=== PATIENT | male | born 1950 | race Two or more races ===

== ENCOUNTER 2019-01-24 12:23 | Inpatient (IN) | payer OTHER ==
[~2019-01-24] VITALS: Ht 190.5 cm; Wt 107.7 kg
--- NOTE | 2019-01-24 12:32 | NUR ---
EKG DONE.HR 22-167. DR MCDUFFIE, ERP, AWARE AND AT BEDSIDE ON PT'S ARRIVAL.
[2019-01-24 12:54] LABS: BASOPHIL % 0.4 % (0-2); PLATELET COUNT 173 x10^3mcL (130-400)
[2019-01-24 12:55] LABS: RED CELL DISTRIBUTION WIDTH 21.4 % (11.5-14.5)
--- NOTE | 2019-01-24 12:57 | NUR ---
X-RAY BEING DONE AT BEDSIDE.
[2019-01-24 13:00] LABS: CALCIUM 8.3 mg/dL (8.5-10.1); CARBON DIOXIDE 23.4 mmol/L (21-32); CREATININE SERUM 1.9 mg/dL (0.7-1.3); POTASSIUM SERUM 4.2 mmol/L (3.5-5.1)
[2019-01-24 13:05] LABS: ALBUMIN 3.1 g/dL (3.4-5.0); BILIRUBIN TOTAL 1.53 mg/dL (0.20-1.00); TOTAL PROTEIN, SERUM 6.5 g/dL (6.4-8.2)
--- NOTE | 2019-01-24 13:08 | NUR ---
US TEST BEING DONE AT BEDSIDE.
[2019-01-24 14:17] LABS: T3 TOTAL 0.84 ng/mL
[2019-01-24 14:22] LABS: PHOSPHOROUS 3.7 mg/dL (2.5-4.9)
--- NOTE | 2019-01-24 14:30 | NUR ---
PT ADMITTED (TELE, ROOM#202A) - REPORT CALLED TO FLOOR HEALTHCARE ACCOUNT MANAGER. OPPORTUNITY GIVEN TO ASK QUESTIONS. PT BEING TRANSPORTED TO FLOOR BY RN AND EMT. PT AAOX4, VSS, BREATHING EASY AND UNLABORED, FOLLOWS SIMPLE COMMANDS.
[2019-01-24 14:31] LABS: FREE T4 1.27 ng/dL (0.76-1.46); FREE THYROXINE INDEX 2.7 ug/dL (1.4-4.5); T4(THYROXINE) 6.8 ug/dL (4.7-13.3)
[2019-01-24 14:34] LABS: CHOLESTEROL/HDL RATIO 3.2
[2019-01-24 15:22] VITALS: BP 111/78
[2019-01-24 15:43] VITALS: BP 105/83
--- NOTE | 2019-01-24 16:14 | NUR ---
RECEIVED PATIENT AA/O X4, DENIES CHEST PAIN OR PALPITATION. NONPRODUCTIVE COUGH NOTED, BILAT. LOBES RHONCHI/CRACKLES; RT UPPER LOBE EXP WHEEZES NOTED. O2SAT 97% UNLABORED BREATHING NOTED, PLACE TELE #28 AFIB HR 132 NOTED. ORIENTED TO CALL LIGHT. POC DISCUSS. OFFERED SANDWICH AND SODA AND OKAY BY DR. EARL. BLE DISCOLORED/SWELLING/RED NOTED. CONT TO MONITOR.
[2019-01-24 17:01] VITALS: BP 110/81
--- NOTE | 2019-01-24 17:20 | NUR ---
PATIENT SAT UP IN BED WATCHING MOVIE ON PHONE. NONPRODUCTIVE COUGH. ROCEPHION IVPB INFUSING AT 100ML/HR TO LAC PATENT, LASIX 20MG IVP AND METOPROLOL 50MG PO ADMINISTERED, BP 110/81, HR 139, CONT TO MONITOR.
--- NOTE | 2019-01-24 18:13 | NUR ---
PATIENT SITTING IN BED WATCHING MOVIE, NO COMPLAIN. ZITHROMAX IVPB INFUSING AT 250ML/HR TO LAC IV PATENT, GAVE SPECIMEN CUPS AND INFORM PATIENT NEED URINE AND SPUTUM SAMPLES, CALL NURSE WHEN AVAILABLE. NEEDS MET. CALL LIGHT WITHIN REACH.
[2019-01-24 21:03] VITALS: BP 104/60
[2019-01-24 23:34] LABS: microscopic required? YES; urine erythrocyte NEGATIVE (NEGATIVE)
[2019-01-24 23:45] LABS: AMPHETAMINE QUAL UR NONE DETECTED (See below)
--- NOTE | 2019-01-25 00:54 | NUR ---
HEAD TO TOE ASSESSMENT COMPLETED THIS SHIFT, PT DENIES ANY PAIN OR DISCOMFORT, WAS ABLE TO SEND PATIENT'S UA WELL HIS SPUTUM CULTURE DOWN TO LAB, PT HAD O2 OFF AT ASSESSMENT BUT WHEN THIS NURSE MADE ROUNDS AGAIN PT DID PUT O2 ON WHICH HE HAS ON AT 02@2L PER NC. PT HAS NO SOB WHEN AMBULATING ROOM, ENCOURAGED PT TO CALL FOR ASSISTANCE WHEN AMBULATING WHEN PT FEELS DIZZY. WILL CONTINUE TO MONITOR FOR SAFETY.
[2019-01-25 05:32] VITALS: BP 98/75
--- NOTE | 2019-01-25 07:40 | NUR ---
RECEIVED PATIENT RESTING IN BED, NO ACUTE CHANGES NOTED. PATIENT DENIES HEADACHE AND DIZZINESS. TELE MONITOR IN PLACE. PATIENT DENIES CHEST PAIN. EDEMA NOTED TO BLE, EDUCATED PATIENT ON MAINTAINING BLE ELEVATED. RHONCHI/CRACKLES NOTED TO REBECCA LOWER BASES, PATIENT ON 2L NC. PATIENT IS AMBULATORY, WITH NO ASSIST. IV TO LAC CDI&PATENT, NO S/S OF INFILTRATION. CALL LIGHT WITHIN REACH, BED IN LOW POSITION. WILL CONTINUE TO MONTIOR FOR CHANGES.
[2019-01-25 07:47] LABS: CALCIUM 8.4 mg/dL (8.5-10.1); CARBON DIOXIDE 22.5 mmol/L (21-32); POTASSIUM SERUM 4.7 mmol/L (3.5-5.1)
[2019-01-25 08:36] LABS: PLATELET COUNT 218 x10^3mcL (130-400); RED CELL DISTRIBUTION WIDTH 21.5 % (11.5-14.5)
[2019-01-25 08:37] LABS: BASOPHIL % 0.3 % (0-2)
[2019-01-25 08:54] LABS: burr cell (echinocyte) 1+; rbc morphology (normal/abnorm) ABNORMAL (NORMAL); tear drop cell (dacryocyte) 1+
[2019-01-25 09:05] VITALS: BP 119/75
[2019-01-25 13:16] VITALS: BP 111/72
--- NOTE | 2019-01-25 15:50 | NUR ---
SPEECH THERAPIST AT BEDSIDE, FOR SWALLOW EVALUATION.
--- NOTE | 2019-01-25 16:12 | NUR ---
Bedside swallow evaluation completed. Pt is alert and verbally responsive. Pt refused trials of thicken liquids. PO trials of regualr diet, Puree and Thin liquids provided. WFL bolus management skills across all diet textures. No s/s of aspiration noted. No cough/ no throat clear noted. Pre and post swallow vocal quality is clear. Swallow evaluation only. Continue regualr texture and thin liquids. No further ST follow up indicated. Informed Jessika, Charge nurse.
[2019-01-25 17:16] VITALS: BP 107/82
--- NOTE | 2019-01-25 17:24 | NUR ---
ABXS GIVEN, NO ACUTE DISTRESS NOTED. PATIENT DENIES PAIN. DENIES CHEST PAIN, HEADACHE, AND DIZZINESS. PATIENT AWARE TO NOTIFY NURSE FOR ANY ASSISTANCE. TELE MONITOR IN PLACE. INSTRUCTED PATIENT TO CONTINUE MAINTAINING BLE ELEVATED, AND CONTINUE USING IS X10 AN HOUR. IV TO LAC CDI&PANT, NO S/S OF INFILTRATION. CALL LIGHT WITH REACH, BED IN LOW POSITION. WILL CONTINUE TO MONITOR.
--- NOTE | 2019-01-25 18:28 | NUR ---
P.T. NOTES P.T. EVAL COMPLETED; PATIENT MAY AMBULATE W/ NURSE AD JARRELL; LD=[id number]
--- NOTE | 2019-01-25 19:25 | NUR ---
RECEIVED REPORT FROM DAY SHIFT RN. PT SITTING IN THE SIDE OF THE BED. AA&O X4. NO C/O SOB OR CHEST PAIN. ON O2 2L VIA NC. NO DISTRESS NOTED. IV SALINE LOCKED TO RAC AND LAC. SAFETY MEASURES IN PLACE. INSTRUCTED PT TO USE THE CALL LIGHT IF ASSISTANCE IS NEEDED. CALL LIGHT WITHIN REACH.
[2019-01-25 20:25] VITALS: BP 125/68
[2019-01-26 05:00] VITALS: BP 105/67
[2019-01-26 06:07] LABS: PLATELET COUNT 151 x10^3mcL (130-400)
[2019-01-26 06:29] LABS: BASOPHIL % 0 % (0-2); RED CELL DISTRIBUTION WIDTH 21.4 % (11.5-14.5)
[2019-01-26 06:41] LABS: CALCIUM 8.3 mg/dL (8.5-10.1); CARBON DIOXIDE 21.7 mmol/L (21-32); CREATININE SERUM 2.2 mg/dL (0.7-1.3); POTASSIUM SERUM 4.6 mmol/L (3.5-5.1)
--- NOTE | 2019-01-26 07:00 | NUR ---
PT RESTED IN INTERVALS. NO SOB ON O2 2L VIA NC. NO C/O PAIN. SAFETY MEASURES MAINTAINED. ALL NEEDS ATTENDED TO. CALL LIGHT WITHIN REACH. WILL ENDORSE CONTINUITY OF CARE TO DAY SHIFT RN.
--- NOTE | 2019-01-26 07:00 | NUR ---
RECIEVED PT RESTING IN BED WITH NO C/O PAIN OR DISTRESS. TELE#28 CONNECTED TO PT, DENIES ANY CP OR PRESSURE. BLE AND REDNESS, JOZEF PHAN AWARE. PT ON 2 LPM O2 NC. NON-PRODUCTIVE COUGH WITH NO C/O SOB. LAC IV CDI AND PATENT AND LAC REMOVED WITH CATHETER INTACT. SAFETY PRECAUTIONS IN PLACE, CALL LIGHT WITHIN REACH, WILL MONITOR.
[2019-01-26 09:14] VITALS: BP 99/72
--- NOTE | 2019-01-26 10:10 | NUR ---
METROPROLOL SKYE NON-SCHEDULED FOR HR OF 144, CHANNEL MARKETING PROGRAM MANAGER AWARE. WILL MONITOR.
[2019-01-26 12:50] VITALS: BP 110/65
--- NOTE | 2019-01-26 14:27 | NUR ---
RAC REMOVED WITH CATHETER INTACT AND NEW IV STARTED IN RFA 22GUAGE. BOTHES SITES FREE FROM INFLAMMATION OR REDNESS.
[2019-01-26 15:25] VITALS: BP 146/77
--- NOTE | 2019-01-26 16:45 | NUR ---
REPORT ENDORSED TO MAXWELL DIANE PER CHARGE NURSE. PT STABLE WITH NO DISTRESS NOTED. SAFETY PRECAUTIONS IN PLACE, AND CALL LIGHT WITHIN REACH.
--- NOTE | 2019-01-26 16:55 | NUR ---
RECEIVED PT. FROM KSENIA VICENTE RN. PT. A/A/O X4. H.R. IN THE 130's - 140's A.FIB. WITH RVR AT THIS TIME. PT. DENIES ANY PAIN OR CHEST DISCOMFORT. NURSE PRACTITIONER JOZEF RODRIGUEZ WAS MADE AWARE OF PT.'S H.R. NO FURTHER ORDER RECEIVED AT THIS TIME. IV SITE NOTED TO R FA. WILL CONTINUE TO MONITOR.
[2019-01-26 17:34] VITALS: BP 108/80
--- NOTE | 2019-01-26 18:09 | NUR ---
REMAINS IN STABLE CONDITION AT THIS TIME. WILL CONTINUE TO MONITOR.
--- NOTE | 2019-01-26 19:30 | NUR ---
RECEIVED REPORT FROM DAY SHIFT RN. PT SITTING ON THE SIDE OF THE BED. AA&O X4. NO SOB NOTED ON ROOM AIR. NO C/O PAIN. IV TO RFA, SALINE LOCKED. SAFETY MEASURES IN PLACE. BED IN LOWEST POSITION. CALL LIGHT WITHN REACH.
[2019-01-26 21:41] VITALS: BP 104/77
[2019-01-27 06:15] VITALS: BP 134/74
[2019-01-27 06:59] LABS: CALCIUM 8.7 mg/dL (8.5-10.1); CARBON DIOXIDE 24.4 mmol/L (21-32); CREATININE SERUM 2.2 mg/dL (0.7-1.3); POTASSIUM SERUM 5.2 mmol/L (3.5-5.1)
[2019-01-27 07:20] LABS: PLATELET COUNT 171 x10^3mcL (130-400)
--- NOTE | 2019-01-27 07:20 | NUR ---
RECEIVED PT IN BED. ASSESSED AND DOCUMENTED. DENIES PAIN THIS TIME. STABLE. NO SOB NOTED THIS TIME. SAFTEY PRECAUTIONS ARE IN PLACE. WILL MONITOR.
--- NOTE | 2019-01-27 07:24 | NUR ---
PT RESTED IN INTERVALS. NO C/O SOB ON ROOM AIR. NO C/O CHEST PAIN OR PRESSURE. NO ACUTE DISTRESS NOTED. SAFETY MEASURES MAINTAINED. ALL NEEDS ATTENDED TO. CALL LIGHT WITHIN REACH. ENDORSED CONTINUITY OF CARE TO DAY SHIFT RN.
[2019-01-27 07:54] LABS: BASOPHIL % 0 % (0-2); RED CELL DISTRIBUTION WIDTH 21.1 % (11.5-14.5)
--- NOTE | 2019-01-27 09:00 | NUR ---
INFORMED CIRCUS HAND JOZEF ABOUT K=5.2, BUN/CREAT=42/2.2. SHE SAID SHE WILL ADJUST THE DOSE OF VANCOMYCIN, NO NEW ORDER THIS TIME. PT IS STABLE.
[2019-01-27 09:17] VITALS: BP 109/55
--- NOTE | 2019-01-27 10:15 | NUR ---
INFORMED PHARMACY ABOUT VANCO TROUGH IS 12, BUT VANCO WAS DISCONTINUED BY TURF FARM WORKER.
[2019-01-27 12:52] VITALS: BP 107/83
--- NOTE | 2019-01-27 13:00 | NUR ---
PT SITTING UP IN THE CHAIR AND EATING HIS LUNCH, STABLE, DENIES ANY PAIN. NO SOB NOTED.
--- NOTE | 2019-01-27 16:00 | NUR ---
PT TOOK SHOWER, STABLE, PUT TELE BACK AFTER HE CAME BACK FROM SHOWER, GETTING BREATHING TX NOW. NO SOB NOTED. HR IS 120'S. WILL MONITOR. METOPROLOL PO 50MG WAS RECEIVED AFTER NOON, DENIES ANY CHEST PAIN.
--- NOTE | 2019-01-27 17:00 | NUR ---
PT IS WALKING, HR IS IN 130'S. ADVISED PT TO LIE DOWN IN THE BED AND REST BUT PT REFUSED, HE SAID HE WANT TO WALK. DENIES CHEST PAIN OR PALPITATION, RHYTHM STILL AFIB WITH RVR, INFORMED PT ABOUT HIS CONDITION BUT PT STILL WANT WALKING AROUND. CLOSELY MONITERING THE PT.
[2019-01-27 17:54] VITALS: BP 116/74
--- NOTE | 2019-01-27 19:15 | NUR ---
PT SITTING UP IN THE BED. STABLE. DENIES ANY PAIN. GAVE REPORT TO ADVERTISING LAYOUT WORKER NURSE.
--- NOTE | 2019-01-27 19:35 | NUR ---
RECEIVED PT. PT SITTING UP IN BED. AA&O X4. NO SOB ON ROOM AIR. BREATHING EVEN AND UNLABORED. NO C/O CHEST PAIN. NO DISTRESS NOTED. IV TO RFA, INTACT. SAFETY MEASURES IN PLACE. BED IN LOWEST POSITION. SIDE RAILS UP X2. INSTRUCTED PT TO CALL IF ASSISTANCE IS NEEDED. CALL LIGHT WITHIN REACH.
[2019-01-27 21:11] VITALS: BP 109/84
--- NOTE | 2019-01-28 01:14 | NUR ---
PT RESTING WITH EYES CLOSED. NO SOB ON ROOM AIR. NO DISTRESS NOTED. CALL LIGHT WITHIN REACH. WILL CONTINUE TO MONITOR.
[2019-01-28 05:27] VITALS: BP 120/60
--- NOTE | 2019-01-28 06:35 | NUR ---
PT RESTED IN INTERVALS THROUGHOUT SHIFT. NO SOB ON ROOM AIR. NO C/O CHEST PAIN. NO ACUTE DISTRESS NOTED. IV TO RFA, PATENT AND INTACT. SAFETY MEASURES MAINTAINED. ALL NEEDS ATTENDED TO. CALL LIGHT WITHIN REACH. WILL ENDORSE CONTINUITY OF CARE TO DAY SHIFT RN.
[2019-01-28 07:02] LABS: PLATELET COUNT 190 x10^3mcL (130-400)
[2019-01-28 07:07] LABS: CALCIUM 8.8 mg/dL (8.5-10.1); CARBON DIOXIDE 23.5 mmol/L (21-32); POTASSIUM SERUM 4.9 mmol/L (3.5-5.1)
--- NOTE | 2019-01-28 07:10 | NUR ---
RECEIVED PT FROM MASTER CHEF MAXWELL. Kna/TATIANA. TELE#28. DENIES CHEST PAIN/PRESSURE. RESPIRATIONS EQUAL AND UNLABORED ON RA. PT C/O MILD SOB. PT STATES "I FELT LIKE IT WAS HARD TO BREATH A LITTLE BIT, BUT SITTING UP HELPED." ENCOURAGED PT TO CONTINUE USING INCENTIVE SPIROMETER. RETURN DEMONSTRATION DONE. PT DENIES ANY PAIN AT THIS TIME. PT DENIES ANY N/V. IV TO RH SALINE LOCKED. NO REDNESS OR SWELLING NOTED. WILL CONTINUE TO MONITOR. CALL LIGHT IN REACH. BED IN LOWEST POSITION.
[2019-01-28 07:13] LABS: BASOPHIL % 0 % (0-2); RED CELL DISTRIBUTION WIDTH 21.4 % (11.5-14.5)
[2019-01-28 09:12] VITALS: BP 117/88
--- NOTE | 2019-01-28 09:37 | NUR ---
PT SITTING UP IN BED. NO ACUTE RESP DISTRESS NOTED ON RA. PT FINISHING UP BREATHING TREATMENT. GIVEN PO MEDS. TOLERATED WELL. IV TO RFA FLUSHED WELL. IV ANTIBIOTIC INFUSING ORDERED. NO REDNESS OR SWELLING NOTED. PT C/O SORE THROAT. MEDICATED PER EMAR. GONZALEZ ANODE WORKER AT BEDSIDE, EXPLAINING TO PT PLAN FOR DISCHARGE ONCE CLEARED BY STORE OPERATIONS MANAGER. WILL CONTINUE TO MONITOR. CALL LIGHT IN REACH. BED IN LOWEST POSITION.
--- NOTE | 2019-01-28 12:29 | NUR ---
PT SITTING UP AT BEDSIDE. NO ACUTE RESP DISTRESS NOTED ON RA. DR. MATUTE AT BEDSIDE, ASSESS PT. IV ANTIBIOTICS INFUSING ORDERED. NO REDNESS OR SWELLING NOTED. PT C/O SORE THROAT. MEDICATED PER EMAR. PT DENIES ANY PAIN AT THIS TIME. WILL CONTINUE TO MONITOR. CALL LIGHT IN REACH. BED IN LOWEST POSITION.
[2019-01-28 12:33] VITALS: BP 112/82
[2019-01-28 13:26] VITALS: BP 112/82
[2019-01-28 16:57] VITALS: BP 125/91
--- NOTE | 2019-01-28 17:25 | NUR ---
PT SITTING UP AT BEDSIDE. NO ACUTE RESP DISTRESS NOTED ON RA. PT DENIES ANY PAIN AT THIS TIME. IV TO RFA FLUSHED WELL. IV ANTIBIOTICS INFUSING ORDERED. NO REDNESS OR SWELLING NOTED. PT C/O SORE THROAT. MEDICATED PER EMAR. WILL CONTINUE TO MONITOR. CALL LIGHT IN REACH. BED IN LOWEST POSITION.
--- NOTE | 2019-01-28 19:27 | NUR ---
RECEIVED PT FROM DAY SHIFT RN. PT AAOX4. DENIES MAR/DIZZINESS. BREATHING EVEN AND UNLABORED ON RA WITH NO SOB NOTED. RT PROTOCOL. PT REPORTS HAVING SORE THROAT. TELE # 28 PER MONITOR AFIB, HR 148. PT DENIES ANY CHEST PAIN/PRESSURE. IV RFA PATENT. ERYTHEMA NOTED TO BLE. PT AMBULATORY. NO SIGNS OF ACUTE DISTRESS NTOED. CALL BUTTON WITHIN REACH. SAFETY PRECAUTIONS IN PLACE. WILL CONTINUE TO MONITOR.
--- NOTE | 2019-01-28 19:30 | NUR ---
RECEIVED PT FROM DAY SHIFT RN. PT BREATHING EVEN AND UNLABORED ON NC 2L/MIN, NO SOB NOTED. REQUESTING FOR BREATHING TX, RT PAGED. PT ALERT AND ORIENTED. SLOW SPEECH. PT DENIES MAR/DIZZINESS. TELE #11 NSR. PT DENIES CHEST PAIN/PRESSURE. DIALYSIS NURSE AT BEDSIDE. PT ANURIC. NGT IN PLACE TO LEFT NARE WITH TUBE FEEDING INFUSING WELL AT 50ML/HR, RISIDUAL OF 20 CC. ASPIRATION PRECAUTIONS. IV LW PATENT WITH KCL INFUSING AT THIS TIME. PT BEDBOUND. TURNED AND REPOSITIONED. RIGHT HIP WOUND VAC IN PLACE. NO SIGNS OF ACUTE DISTRESS NOTED. CALL BUTTON WITHIN REACH. SAFETY PRECAUTIONS IN PLACE. FAMILY AT BEDSIDE. WILL CONTINUE TO MONITOR.
[2019-01-28 20:13] VITALS: BP 111/75
--- NOTE | 2019-01-29 01:45 | NUR ---
ROUNDS MADE. PT RESTING. BREATHING EVEN AND UNLABORED ON RA WITH NO SOB NOTED. NO SIGNS OF ACUTE DISTRESS NOTED. CALL BUTTON WITHIN REACH. SAFETY PRECAUTIONS IN PLACE. WILL CONTINUE TO MONITOR.
[2019-01-29 05:21] VITALS: BP 130/98
--- NOTE | 2019-01-29 05:39 | NUR ---
PT SLEPT MOST OF THE NIGHT WITH NO SIGNS OF DISTRESS. PT HR CONTINUE TO RANGE BETRWEEN 115 TO 160. PT AYSMPTOMATIC. PT MEDICATED PER EMAR. PT AMBULAOTRY WITH BRP. NO ACUTE DISTRESS NOTED. CALL BUTTON WITHIN REACH. SAFETY PRECAUTIONS IN PLACE. WILL CONTINUE TO MONITOR AND ENDORSE CARE TO DAY SHIFT RN.
[2019-01-29 06:35] LABS: PLATELET COUNT 186 x10^3mcL (130-400)
[2019-01-29 06:37] LABS: CALCIUM 8.7 mg/dL (8.5-10.1); CARBON DIOXIDE 25.7 mmol/L (21-32); CREATININE SERUM 2.1 mg/dL (0.7-1.3); POTASSIUM SERUM 5.4 mmol/L (3.5-5.1)
[2019-01-29 06:42] LABS: BASOPHIL % 0 % (0-2); RED CELL DISTRIBUTION WIDTH 20.9 % (11.5-14.5)
--- NOTE | 2019-01-29 07:26 | NUR ---
PT RESTING. NO SIGNS OF ACUTE DISTRESS NOTED. CALL BUTTON WITHIN REACH. SAFETY PRECAUTIONS IN PLACE. ENDORSED CARE TO DAY SHIFT RN, ALL QUESTIONS ADDRESSED.
--- NOTE | 2019-01-29 07:40 | NUR ---
RECEIVED PT FROM ASSISTED SALES REPRESENTATIVE RN. Kan/TATIANA. TELE#28. DENIES CHEST PAIN/PRESSURE. RESPIRATIONS EQUAL AND UNLABORED ON RA. C/O SOB WHEN LYING FLAT. PT SITTING UP AT EDGE OF BEDSIDE, PT STATES BREATHING HAS IMPROVED SITTING UP. PT DENIES ANY PAIN AT THIS TIME. IV TO RFA SALINE LOCKED. NO REDNESS OR SWELLING NOTED. WILL CONTINUE TO MONITOR. CALL LIGHT IN REACH. BED IN LOWEST POSITION.
[2019-01-29 08:26] VITALS: BP 113/77
[2019-01-29 09:48] LABS: target cell (codocyte) 2+; tear drop cell (dacryocyte) 1+
[2019-01-29 09:49] LABS: ovalocyte/elliptocyte 1+; rbc morphology (normal/abnorm) ABNORMAL (NORMAL); schistocyte (helmet cell) 1+
--- NOTE | 2019-01-29 10:14 | NUR ---
PT SITTING UP AT BEDSIDE. NO ACUTE RESP DISTRESS NOTED ON RA. PT C/O CONGESTION AND BEING UNABLE TO COUGH UP MUCUS. PT ASKING FOR MUCINEX. LISA COAL FEEDER OPERATOR MADE AWARE WILL PUT IN ORDER FOR MUCINEX. GIVEN PO MEDS. TOLERATED WELL. IV TO RFA FLUSHED WELL. IV ANTIBIOTICS INFUSING ORDERED. NO REDNESS OR SWELLING NOTED. WILL CONTINUE TO MONITOR. CALL LIGHT IN REACH. BED IN LOWEST POSITION.
--- NOTE | 2019-01-29 12:17 | NUR ---
PT SITTING UP IN BED. TELE#28 PLACED ON PT. RESPIRATORY THERAPIST AT BEDSIDE. PT RECEIVING BREATHING TREATMENT. GIVEN PO MEDS. TOLERATED WELL. IV ANTIBIOTICS INFUSING ORDERED. NO REDNESS OR SWELLING NOTED. WILL CONTINUE TO MONITOR. CALL LIGHT IN REACH. BED IN LOWEST POSITION.
[2019-01-29 12:32] VITALS: BP 121/94
[2019-01-29 16:29] VITALS: BP 124/95
--- NOTE | 2019-01-29 20:06 | NUR ---
RECIEVED PT FROM PREVIOUS NURSE. PT AOX4. PT REST IN BED. DENIES PAIN OR SOB/ DIFFICULTY BREATHING. NO SIGNS OF ACUTE DISTRESS. BED IN LOWEST POSITION AND CALL LIGHT WITHIN REACH. WILL CONTINUE TO MONITOR.
[2019-01-29 21:25] VITALS: BP 113/83
--- NOTE | 2019-01-30 05:03 | NUR ---
PT RESTING IN BED. RESPIRATION EVEN AND UNLABORED. NO SIGNS OF ACUTE DISTRESS. BED IN LOWET POSITION AND CALL LIGHT WITHIN REACH. WILL CONTINUE TO MONITOR.
[2019-01-30 05:49] VITALS: BP 117/93
[2019-01-30 06:48] LABS: CALCIUM 8.6 mg/dL (8.5-10.1); CREATININE SERUM 2.1 mg/dL (0.7-1.3); POTASSIUM SERUM 4.3 mmol/L (3.5-5.1)
--- NOTE | 2019-01-30 07:10 | NUR ---
RECEIVED REPORT FROM PASTRY WRAPPER NURSE PATIENT LYING IN BED WITH EYES CLOSED. A7O X4 DENIES ANY CHEST PAIN AT THIS TIME ON TELE MONITOR 28. LUNGS CTA BILAT CHEST RISE EQUAL AND UNLABORED. NO S/S OF ANY ACUTE DISTRESS NOTED. IV ON RFA INFUSING NO REDNESS OR EDEMA NOTED. ALL NEEDS ATTENDED TO AT THIS TIME. BED IN LOWEST POSITION CALL LIGHT WITHIN REACH. WILL CONTINUE TO MONITOR.
[2019-01-30 07:41] LABS: PLATELET COUNT 159 x10^3mcL (130-400)
[2019-01-30 08:40] VITALS: BP 103/81
[2019-01-30 08:45] LABS: BASOPHIL % 0 % (0-2); RED CELL DISTRIBUTION WIDTH 21.4 % (11.5-14.5); rbc morphology (normal/abnorm) ABNORMAL (NORMAL)
[2019-01-30 09:05] LABS: calcium (part of PTHIC) 8.2 mg/dL (8.6-10.2)
--- NOTE | 2019-01-30 09:24 | NUR ---
ADMINISTERED SCHEDULED MEDS PER MAR PATIENT TOLERATED WELL NO ADVERSE REACTIONS NOTED. PATIENT C/O SOB 02 IS 96% ON RA ADMINISTERED NC 2L FOR COMFORT PATIENT TOLERATEING WELL. RT AT BEDSIDE FOR A BREATHING TREATMENT. NO S/S OF ANY RESPIRATORY DISTESS AT THIS TIME. ALL QUESTIONS AND CONCERNS ADDRESSED AT THIS TIME. SAFETY PRECAUTIONS IN PLACE. WILL CONTINUE TO MONITOR.
--- NOTE | 2019-01-30 10:00 | NUR ---
PATIENT SITTING UP IN BED DENIES ANY SOB AT THIS TIME PATIENT ON NC 2L STILL . WILL CONTINUE TO MONITOR.
[2019-01-30 12:15] VITALS: BP 116/78
--- NOTE | 2019-01-30 12:45 | NUR ---
PATIETN SITTING UP EATING LUNCH TOLERATING DIET WELL. ALL NEEDS ATTENDED TO AT THIS TIME. BED IN LOW POSITION CALL LIGHT WITHIN REACH. WILL CONTINUE TO MONITOR.
--- NOTE | 2019-01-30 13:16 | NUR ---
1. Recommend continue with cardiac diet.
--- NOTE | 2019-01-30 13:16 | NUR ---
Initial Nutrition Assessment- Nabil Leonard 202T-A Dx: Sepsis with PNA PMHx: Bladder and kidney cancer PSHx: Cholecystectomy, Nephrectomy, Bladder tumor lysis, TURP, L5 Vertebra removed, Labs: (01/30) BUN:52, Cr:2.1H (01/29) WBC:11.2H. H/H:12.5/41L Meds: Cardizem, Colace, Eliquis, Lanoxin, Lasix, Lopressor, Tylenol, Zofran, Zosyn and Heparin Diet: Cardiac PO Intakes: 01/29: 100% of B, L &D, 01/30: B:100% Ht: 75in, 6'3" Wt:239#, 108.664kg BMI: 29.9kg/m2 (overweight) IBW: 196#, 89kg %IBW:122% UBW: 240# Age: 68 y/o male Food Allergies: NKFA Skin: BLE erythema Zi:21 Edema: BLE edema GI: active bowel sounds Last BM:01/28 Per H&P, pt admitted with c/o SOB x 2 weeks. Pt also reports to productive cough of clear sputum, indigestion, weight gain, BL peripheral edema and mild diarrhea. Per progress note 01/30, pt continues to have elevated HR of 120's, denies pain/discomfort. Cellulitis on BL LE is improving. Plan: continue metropolol, am labs and once HR controlled dc planning for home. During visit, observed pt sitting up in bed waiting for his lunch. Pt reports to having a good appetite with no c/o GI issues. Pt was inquiring about his lunch tray and wanting bigger portions. Explained he was on a cardiac diet with a sodium and fat restriction but would see if I could add a snack. Per outpatient dietitian, only cardiac snack available: pudding, [place] ice or milk. RD added pudding. Problem with: N/V/D/C: No Problems with: Chewing/Swallowing: No Current appetite: Good Recent wt changes: %wt change: Vitamin/Supplement: No Special Diet at Home: Regular Physical activity: no Education: provided verbal diet education on low sodium food options Estimated Nutritional Needs Based on ideal body weight of 89 kg. Energy: 6161-8745 kcal/d (25-30 kcal/kg for maintenance) Protein:89-107 gm/d (1-1.2 gm/kg for geriatric maintenance) Fluid: per MD. Nutrition Diagnosis 1. Overweight related to excessive caloric intake and sedentary lifestyle as evidenced by BMI:29.9kg/m2. Intervention/RDN Recommendation(s): 1. Recommend continue with cardiac diet. Monitor/Evaluate Goal: PO intake to continue to meet 75% estimated needs Monitor: PO intakes Labs, GI function, Skin integrity, Weights. F/U in 7 days as low risk 02/06
--- NOTE | 2019-01-30 15:20 | NUR ---
ADMINISTERED SCHEDULED MED PATIENT TOLERATED WELL NO ADVERSE REACTIONS NOTED. ALL QUESTIONS AND CONCERNS ADDRESSED AT THIS TIME. PATIENT ON RA SP02 96% PATIENT DENIES ANY SOB AT THIS TIME. BED IN LOWEST POSITION CALL LIGHT WITHIN REACH. WILL CONTINUE TO MONITOR.
[2019-01-30 16:50] VITALS: BP 95/71
--- NOTE | 2019-01-30 17:58 | NUR ---
PATIENT SITTING UP IN BED EATING DINNER TOLERATING DIET WELL. PATIENT DENIES ANY SOB OR PAIN AT THIS TIME. PATIENT ON RA ASP 02 96% AT THIS TIME. CHEST RISE EQUAL AND UNLABORED. ALL NEEDS ATTENDED TO. SAFETY PRECAUTIONS IN PLACE. WILL CONTINUE TO MONITOR.
--- NOTE | 2019-01-30 18:47 | NUR ---
PATIENT SITTING UP AT THE EDGE OF THE BED WATCHING TV NO S/S OF ANY RESPIRATORY DISTRESS, CHEST RISE EQUAL AND UNLABORED. PATIENT DENIES ANY SOB OR CHEST PAIN AT THIS TIME. IV PATENT AND INTACT ON RFA SALINE LOCKED. ALL QUESTIONS AND CONCERNS ADDRESSED AT THIS TIME. BED IN LOWEST POSITION CALL LIGHT WITHIN REACH. WILL ENDORSE CARE TO NIGHT NURSE.
--- NOTE | 2019-01-30 19:30 | NUR ---
Received pt. from day shift, currently a/o x3, able to make needs known, able to follow commands, and has no c/o of h/a. At this time. pt. does state he has bouts of SOB for few minutes, but with O2, it is relieved and is able to wean it off after a few mins. Otherwise, pt. has no c/o of pain, chest pain, s/o distress or comfort. Pt. requested to see grandchildren, branch logistics supervisor allowed him 20 mins downstairs accompanied by BASEBALL CLUB MANAGER. Informed pt. that he would need to wait around 30 mins so that BASEBALL CLUB MANAGER can finish taking vitals, but he will be able to go downstairs. Pt. safety in check with call light placed within reach, educated pt. and pt. family on when and how to use call light system, bed set at loweset position, will continue to monitor pt.
[2019-01-30 19:50] VITALS: BP 118/93
--- NOTE | 2019-01-30 22:24 | NUR ---
Pt. Lopressor held d/t apical pulse being 58. When takign radial pulses, it's noted to be thready BUE, reading different 57 on Right radail pusle and 43 on the Left radial pulse at this time. Pt. has no c/o of chest pain at this time or SOB. will continue to monitor pt.
--- NOTE | 2019-01-31 00:28 | NUR ---
Pt is asleep with no signs of distress.
--- NOTE | 2019-01-31 00:47 | NUR ---
Pt. BP 109/70 w/ HR of 98. Pt. has no c/o of SOB or C/P at this time, will medicate with 0000 dose of Cardizem as ordered and continue to monitor. Pt. was asleep when nurse walked in, easily arousable using verbal stimuli. Will continue to monitor pt. at this time.
[2019-01-31 05:38] VITALS: BP 108/80
--- NOTE | 2019-01-31 06:46 | NUR ---
Pt. asleep for most of the night, no c/o of pain, discomfort or s/o distress. No bouts of SOB, able to give medications via IV no issues, IV flushes well on RAC. Will continue to monitor and endorse to next shift RN.
[2019-01-31 06:47] LABS: CALCIUM 8.7 mg/dL (8.5-10.1); CARBON DIOXIDE 25.2 mmol/L (21-32); POTASSIUM SERUM 4.7 mmol/L (3.5-5.1)
[2019-01-31 06:50] LABS: PLATELET COUNT 185 x10^3mcL (130-400)
[2019-01-31 07:05] LABS: BASOPHIL % 0 % (0-2); RED CELL DISTRIBUTION WIDTH 20.8 % (11.5-14.5)
--- NOTE | 2019-01-31 07:10 | NUR ---
RECEIVED REPORT FROM NIGHT NURSE PATIENT SITTING UP IN BED DENIES ANY SOB OR PAIN AT THIS TIME. IV PATENT AND INTACT ON RFA NO REDNESS OR EDEMA NOTED. PATIENT A&O X4, LUNGS CTA BILAT NO S/S OF ANY RESPIRATORY DISTRESS. ALL QUESTIONS AND CONCERNS ADDRESSED AT THIS TIME. BED IN LOWEST POSITION CALL LIGHT WITHIN REACH. WILL CONTINUE TO MONITOR.
[2019-01-31 08:46] VITALS: BP 112/77
--- NOTE | 2019-01-31 09:21 | NUR ---
PATIENT FINISHED SHOWER DENIES ANY SOB AT THIS TIME CHEST RISE EQUAL AND UNLABORED. COMMERCIAL LITIGATION PARALEGAL LISA UPDATED PATIENT ON CARE STATUS. ADMINISTERED SCHEDULE MEDS PATIENT TOLERATED WELL NO ADVERSE REACTIONS NOTED. ALL NEEDS ATTENDED TO AT THIS TIME. BED IN LOWEST POSITION CALL LIGHT WITHIN REACH. WILL OCNTINUE TO MONITOR.
[2019-01-31 10:41] LABS: ovalocyte/elliptocyte 1+; rbc morphology (normal/abnorm) ABNORMAL (NORMAL); schistocyte (helmet cell) 1+; target cell (codocyte) 2+; tear drop cell (dacryocyte) 1+
--- NOTE | 2019-01-31 12:45 | NUR ---
PATIENT SITTING UP AT THE EDGE OF BED EATING LUNCH TOLERATING DIET WELL. PATIENT DENIES ANY CHEST PAIN OR SOB AT THIS TIME. ALL NEEDS ATTENDED TO AT THIS TIME. BED IN LOWEST POSITION CALL LIGHT WITHIN REACH. WILL CONTINUE TO MONITOR.
--- NOTE | 2019-01-31 15:34 | NUR ---
PATIENT SITTING UP IN BED ON HIS PHONE DENIES ANY SOB OR PAIN AT THIS TIME. ALL NEEDS ATTENDED TO. BED IN LOWEST POSITION CALL LIGHT WITHIN REACH. WILL CONTINUE TO MONITOR.
[2019-01-31 16:56] VITALS: BP 100/78
--- NOTE | 2019-01-31 18:34 | NUR ---
PATIENT SITTING UP IN BED DENIES ANY CHEST PAIN OR SOB. IV ON RFA SALINE LOCKED PATENT AND INTACT. TELE MONITOR 25 SHOWING A-FIB, SPOKE TO DR HERNANDEZ ABOUT PATIENT CONCERN OF WANTING TO BE DISCHARGED DR HERNANDEZ WILL UPDATE PATIENT IN THE MORNING. PATIENT VERBALIZED UNDERSTANDING. ALL QUESTIONS AND CONCERNS ADDRESSED AT THIS TIME. BED IN LOWEST POSITION CALL LIGHT WITHIN REACH. WILL ENDORSE CARE TO NIGHT NURSE.
--- NOTE | 2019-01-31 19:25 | NUR ---
Received pt. from day shift, currently awake and standing up at this time. Pt. is a/o x3, able to make needs known, able to follow commands, and has no c/o of h/a at this time. Pt. has no c/o of chest pain, no SOB or bouts of SOB as per pt. no pain, or s/o discomfort or distress. As reported by day shift nurse, will talk to the pt. tomorrow to make sure AFIB is under control and pt. rhythm is not too irregular and is for possible d/c tomorrow or it will be considered. Will continue to monitor pt. at this time.
[2019-01-31 21:28] VITALS: BP 106/69
--- NOTE | 2019-01-31 21:38 | NUR ---
Counted Apical Pulse rate at this time, it was 54, will hold both cardiac meds tonight as ordered for the parameters.
[2019-02-01 06:08] VITALS: BP 137/95
--- NOTE | 2019-02-01 06:25 | NUR ---
Pt. asleep throughout most of the night, pt. had no c/o of pain, c/p, or h/a. Pt. c/o of mild gas pain in Lower Left Quadrant, wanted to take a shower, will give IV medication as ordered. otherwise, pt. stable, will endorse to next shift RN and continue to monitor pt. until end of shift.
--- NOTE | 2019-02-01 08:09 | NUR ---
SITTING UP IN BED FINISHED BREAKFAST. 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 CHANGED TELE FROM T 28 TO 31. NO CHANGE NOTED IN HEART RATE. CALL LIGHT WITHIN REACH.
[2019-02-01 08:24] VITALS: BP 124/86
[2019-02-01 12:47] VITALS: BP 106/84
[2019-02-01 16:14] VITALS: BP 122/82
--- NOTE | 2019-02-01 17:05 | NUR ---
PT GETTING INTO SHOWER. TELE STATION NOTIFIED. PUTTING TELE ON STANDBY. T.C. TO RADIOLOGY GIVE PT 20 MINUTES FOR SHOWER BEFORE COMING FOR KUB.
--- NOTE | 2019-02-01 17:37 | NUR ---
OUT OF SHOWER. TELE STATION NOTIFIED. PLACED BACK ON TELE.
--- NOTE | 2019-02-01 17:43 | NUR ---
ALERT AND ORIENTED. RECEIVING BREATHING TREATMENT. INDEPENDENT W ADL'S. CONTINUES ON ROCEPHIN AND ZOSYN IV ABX. SEEN BY DR. MILAN. STILL TRYING TO GET HR UNDER CONTROL. KUB ORDERED. CALL LIGHT WITHIN REACH.
[2019-02-01 19:52] VITALS: BP 111/67
[2019-02-01 20:00] VITALS: BP 100/60; BP 163/112
--- NOTE | 2019-02-01 20:05 | NUR ---
PT stable in bed sitting down eating his salad. Expresses no pain and bilateral leg swelling.
--- NOTE | 2019-02-02 05:13 | NUR ---
Pt is currently sitting down in bed. After using the bathroom HR increases to the 150. Heart rate drops to 108 with no symptoms.
[2019-02-02 05:30] VITALS: BP 121/83
[2019-02-02 06:47] LABS: CALCIUM 8.4 mg/dL (8.5-10.1); CARBON DIOXIDE 28.2 mmol/L (21-32); POTASSIUM SERUM 4.8 mmol/L (3.5-5.1)
[2019-02-02 07:47] VITALS: BP 95/61
[2019-02-02 08:24] LABS: PLATELET COUNT 191 x10^3mcL (130-400)
[2019-02-02 08:28] LABS: BASOPHIL % 0 % (0-2); RED CELL DISTRIBUTION WIDTH 20.1 % (11.5-14.5)
[2019-02-02 11:15] VITALS: BP 89/59
--- NOTE | 2019-02-02 12:50 | NUR ---
INFORMED [employer] MANAGER OF BP 89/59 HR 135 MAP 70. PT IS ASYMPTOMATIC.
--- NOTE | 2019-02-02 14:49 | NUR ---
TELE OFF FOR SHOWER. TELE MONITOR INFORMED.
[2019-02-02 16:56] VITALS: BP 106/71
--- NOTE | 2019-02-02 18:35 | NUR ---
SITTING UP AT EDGE OF BED. MT REPORTED PT HR 160. PT HAS BEEN HAVING HR FROM 135-160 THIS SHIFT. WAITING FOR DR. MILAN. SHOWERED. CONTINUES ON ZOSYN AND ROCEPHIN IV ABX. NO C/O PAIN. INDEPENDENT W ADL'S. CALL LIGHT WITHIN REACH.
--- NOTE | 2019-02-02 18:55 | NUR ---
PT HAS BEEN HAVING HR OF 150-160 OFF AND ON MOST OF THE SHIFT. T.C. TO DR. MILAN TO INFORM HIM. OF ELEVATED HR UNCONTROLLED. SAID TO [facility] AND GIVE 2100 BP MEDS. BP 105/56 HR 136-[address]. [address] BP MEDS HELD THIS AM D/T LOW BP. DR. MILAN SAID HE WOULD BE IN TOMORROW NOT THIS EVENING. [phone] DR.S BELL.
--- NOTE | 2019-02-02 18:58 | NUR ---
PT WOULD LIKE TO BE DC'D AND F/U WITH FIRE OFFICIAL OUT PT.
[2019-02-02 19:36] VITALS: BP 122/92
--- NOTE | 2019-02-02 23:10 | NUR ---
PT BP IS LOW 82/61 WITH HR 135. HELD CARDIZEM IVP. MADE DR. MILAN AWARE. PER DR. MILAN, WILL TRANSFER PT TO ICU AND START ON AMIODARONE IV DRIP 150MG X1 AND DRIP PROTOCOL 1MG/MIN FOLLOWING AFTER. GAVE REPORT TO [employer] L[employer]ER. WILL TRANSFER PT TO ICU IN 15 MIN WHEN BED IS AVAILABLE. WILL MAKE DR. PECK AWARE. WILL CONTINUE TO MONITOR.
[2019-02-02 23:40] VITALS: BP 122/71
--- NOTE | 2019-02-02 23:40 | NUR ---
RECEIVED PT FROM [facility] ACCOMPANIED BY 2 RN'S. PT WAS ABLE TO AMBULATE TO THE BED WITH A STEADY GAIT. PT CONNECTED TO FULL MEASUREMENT PSYCHOLOGIST, VITALS READING: HR 140, NIBP 122/71 MAP 87, RR 18, SPO2 99%. PT IS A/OX4. SPEECH IS CLEAR. ABLE TO MAKE NEEDS KNOWN/FOLLOW COMMANDS. BREATHING IS E/U ON RA. LUNGS SOUND CLEAR BILAT. PT NOTED WITH A PRODUCTIVE COUGH. PT IN AFIB RVR ON THE MONITOR. S1/S2 HEART SOUNDS AUSCULTATED. CHEST WALL EQUAL AND SYMMETRICAL. DENIES ANY CP. PALPABLE PULSES X4 EXTREMITIES. SKIN IS WARM AND DRY. +2 PITTING EDEMA NOTED TO BLE. CAP REFILL <3 SECS. RFA IV INTACT/SECURED, NO S/S OF INFILTRATION NOTED. ABD IS SOFT/DISTENDED, MILD TENDERNESS TO PALPATION. BOWEL SOUNDS ACTIVE X4 QUADRANTS. NO BM NOTED. PT VOIDS FREELY VIA URINAL. ERYTHEMA NOTED TO BLE, LIGHT INDUSTRIAL. ERYTHEMA NOTED TO ABD, HARMAN. OPEN WOUND TO LLE WITH DRESSING CDI. ECCHYMOSIS NOTED TO BUE. PICTURES TAKEN AND PLACED IN THE CHART. PT ORIENTED TO ROOM AND USE OF CALL LIGHT. BED IN LOW POSITION. CALL LIGHT IN REACH. WILL CONT TO MONITOR
--- NOTE | 2019-02-02 23:58 | NUR ---
AMIODARONE GTT INITIATED AT THIS TIME @ 1 MG/MIN PER PROTOCOL. PT'S HR IN THE 140'S AT THIS TIME.
[2019-02-03 03:11] VITALS: BP 88/57
--- NOTE | 2019-02-03 04:09 | NUR ---
PT IS SLEEPING, EASILY AROUSABLE. BREATHING IS E/U ON RA. NO S/S OF ACUTE DISTRESS NOTED. AMIODARONE GTT INFUSING @ 1 MG/MIN WITH NO S/S OF INFILTRATION NOTED. BED IN LOW POSITION. CALL LIGHT IN REACH. WILL CONT TO MONITOR
--- NOTE | 2019-02-03 05:05 | NUR ---
PARTS COUNTER CLERK AT BEDSIDE FOR AM LAB DRAW
[2019-02-03 05:46] LABS: BASOPHIL % 0.1 % (0-2); PLATELET COUNT 130 x10^3mcL (130-400)
[2019-02-03 05:47] LABS: RED CELL DISTRIBUTION WIDTH 20.4 % (11.5-14.5)
--- NOTE | 2019-02-03 05:58 | NUR ---
AMIODARONE GTT TITRATED TO 0.5 MG/MIN PER PROTOCOL.
[2019-02-03 06:27] LABS: rbc morphology (normal/abnorm) ABNORMAL (NORMAL); schistocyte (helmet cell) 1+; target cell (codocyte) 2+
[2019-02-03 06:42] LABS: CALCIUM 7.9 mg/dL (8.5-10.1); CARBON DIOXIDE 29.1 mmol/L (21-32); MAGNESIUM 2.2 mg/dL (1.8-2.4); PHOSPHOROUS 3.9 mg/dL (2.5-4.9); POTASSIUM SERUM 4.6 mmol/L (3.5-5.1)
[2019-02-03 07:00] VITALS: BP 100/61
--- NOTE | 2019-02-03 07:02 | NUR ---
REPORT GIVEN TO CARL ARREOLA FOR CONTINUITY OF CARE. ALL QUESTIONS/CONCERNS ADDRESSED. ENDORSING ALL CARE
--- NOTE | 2019-02-03 07:15 | NUR ---
PT IS AAOX4. LUNG SOUNDS CTA, ON R/A, NO COUGH OR SOB NOTED. TELE MONITOR READING AFIB WITH RVR. PT AHS BLE 2+ EDEMA., PERIPHERAL PULSES MOD PALPABLE. CAP REFILL < 3 SECS. SKIN WARM. IV CATH TO FRA, AND LH, BOTH PATENT AND COVERED WITH CDI OCCLUSIVE DRESSING. PT HAS BLE ERYTHEM AND ECCHYMOSIS. LLE EXCORIATION COVERED WITH CDI DRESSING. PT DENIES PAIN AND DISCOMFORT. DENIES C/P, PRESSURE AND PALPITATIONS. CALL LIGHT WITHIN REACH. BED IN LOWEST POSITION. WILL CONTINUE TO MONITOR.
--- NOTE | 2019-02-03 07:42 | NUR ---
SPOKE TO [facility] PHARMACIST REGARDING VANCO. VANCO HAS BEEN D/C AT THIS TIME.
--- NOTE | 2019-02-03 08:30 | NUR ---
JOZEF RODRIGUEZ NP MET WITH PT AND DISCUSSED POC. PT IS TO REMAIN ON AMIODARONE DRIP UNTIL HR RETURNS TO NSR. PT AGREED WITH POC.
--- NOTE | 2019-02-03 10:17 | NUR ---
DIGOXIN AND LASIS SCANNED LATE DUE TO NOT AVAILABLE, PHARMACY TO DELIVER. PT MADE AWARE. SCHEDULED MEDS GIVEN AND TOLERATED WELL. PT DENIES C/P, PRESSURE AND PALPITATIONS. CALL LIGHT WITHIN REACH.
[2019-02-03 11:30] VITALS: BP 108/68
--- NOTE | 2019-02-03 12:49 | NUR ---
ZOSYN IVBP GIVEN. PT SITTING UP AT BEDSIDE EATING. RESP EVEN AND UNLABORED. NO DISTRESS NOTED. PT DENIES C/P AND PRESSURE. CALL LIGTH WITHIN REACH.
--- NOTE | 2019-02-03 13:13 | NUR ---
IV CATH FROM RFA REMOVED WITH CATH INTACT. SITE WNL. NO S/S OF INFECTION OR INFILTRATION. COVERED WITH GAUZE AND BANDAID. NEW IV CATH STARTED TO RAC. SITE WNL. COVERED WITH CDI OCCLUSIVE DRESSING.
--- NOTE | 2019-02-03 14:16 | NUR ---
PT IS RESTING IN BED. RESP EVEN AND UNLABORED. NO DISTRESS NOTED. CALL LIGTH WITHIN REACH.
[2019-02-03 16:30] VITALS: BP 96/58
--- NOTE | 2019-02-03 17:23 | NUR ---
DR. MILAN ASSESSED PT. PT WILL BE KEPT ON AMIODARONE DRIP UNTIL MIDNIGHT THEN AND NEW ORDER FOR PO MEDICATION WILL BE STARTED. PT MADE AWARE.
--- NOTE | 2019-02-03 17:53 | NUR ---
ZOSYN IVPB STARTED. PT DENIES C/P, PRESSURE AND PALPITATION. NO DISTRESS NOTED. CALL LIGHT WITHIN REACH.
--- NOTE | 2019-02-03 19:15 | NUR ---
TITRATED FENTANYL GTT TO 1MCG/KG/HR, TITRATED VERSED DOWN TO 4MG/HR FOR LOW BP
--- NOTE | 2019-02-03 19:17 | NUR ---
PT IS AAOX4. RESP EVEN AND UNLABORED. ON R/A. TELE [address] READING AFIB HR 91. IV CATH TO RFA AND LH WNL. NO S/S OF INFECTION OR INFILTRATION NOTED. PT DENIES C/P AND PRESSURE AT THIS TIME. WILL ENDORSE ALL CARE TO NOC SHIFT.
[2019-02-03 19:30] VITALS: BP 92/71
--- NOTE | 2019-02-03 19:30 | NUR ---
REC'D REPORT CLAUDINE GARDNER RN TO ASSUME CARE. PT SEEN AWAKE IN BED A&O X4 DENIES ANY PAIN OR DISCOMFORT. NO SOB NOTED. RESPIRATIONS E/U, LADLE POURER IN PLACE SHOWING A. FIB W/ HR 95 BP 92/71 MAP 78. DENIES ANY CHEST PAIN, SYNCOPE, DIZZINESS. PERIPHERAL IV TO LH AND RFA INTACT AND PATENT, AMIODARONE GTT INFUSING AT 0.5MG/MIN. PT VOIDS FREELY, PT IS AMBULATORY W/ ASSIST. INDEPENDENT W/ ADLS. ENCOURAGED TO USE CALL LIGHT FOR ASSISTANCE. CALL LIGHT WITHIN REACH. WILL CONTINUE TO MONITOR.
--- NOTE | 2019-02-03 23:47 | NUR ---
PT COMPLAINING OF PAIN IN RFA IV, DC'D W/ ANGIOCATH INTACT, BLEEDING CONTROLLED.
[2019-02-03 23:52] VITALS: BP 113/76
--- NOTE | 2019-02-04 | NUR ---
AMIODARONE GTT TURNED OFF AT THIS TIME. WILL CONTINUE TO MONITOR.
[2019-02-04 03:00] VITALS: BP 102/61
[2019-02-04 07:49] LABS: CALCIUM 7.9 mg/dL (8.5-10.1); CARBON DIOXIDE 27.8 mmol/L (21-32); CREATININE SERUM 2.1 mg/dL (0.7-1.3); MAGNESIUM 2.2 mg/dL (1.8-2.4); PHOSPHOROUS 3.2 mg/dL (2.5-4.9); POTASSIUM SERUM 4.4 mmol/L (3.5-5.1)
[2019-02-04 08:08] LABS: BASOPHIL % 0.1 % (0-2); PLATELET COUNT 138 x10^3mcL (130-400)
[2019-02-04 08:09] LABS: RED CELL DISTRIBUTION WIDTH 20.5 % (11.5-14.5)
[2019-02-04 09:09] VITALS: Ht 190.5 cm; Wt 107.7 kg
[2019-02-04 11:17] LABS: rbc morphology (normal/abnorm) ABNORMAL (NORMAL)
[2019-02-04 13:29] VITALS: BP 102/61
[2019-02-04] MEDS ORDERED: CARDIZEM CD180 MG PO (14:53)
[2019-02-04] MEDS ORDERED: ELIQUIS5 MG PO (14:54)
[2019-02-04] MEDS ORDERED: DIGOXIN0.125 M1 PO (14:54)
[2019-02-04] MEDS ORDERED: LASIX40 MG PO (14:55)
[2019-02-04 15:15] VITALS: BP 102/61
--- NOTE | 2019-02-04 16:02 | NUR ---
REMOVED DRESSING TO LLE ANTERIOR SCHINN AREA, WITH A PARTIAL THICKNESS WOUND 0.4 X 0.4 CM, SLIGHT SEROUS DRAINAGE. TOOK PHOTO OF WOUND, CLEANED WITH NS, APPLIED THERAHONEY AND THEN A BANDAID. I GAVE HIM EXTRA BANDAIDS AND THERAHONEY. I GAVE HIM DISCHARGE INSTRUCTIONS AND HIS MEDICATIONS WILL BE SENT TO HIS PHARMACY, HE IS AWARE. HE KNOWS TO FOLLOW UP WITH THE KIDNEY DR, AND HIS PRIMARY MD.
--- NOTE | 2019-02-04 16:05 | NUR ---
DR MATUTE CAME TO SEE HIM AND GAVE HIM HIS OFFICE NUMBER AND ADDRESS FOR HIM TO FOLLOW UP WITH HIS OFFICE.
[2019-02-04 16:44] VITALS: BP 112/69
== END 2019-02-04 17:57 | disposition home or self-care (01) | DRG 871 ==
LOC: ED 12:23 → DU 13:40 → IC 02-02 23:33 → DU 02-04 13:13 → MU 02-04 14:48
PROVIDERS: General Practice; Internal Medicine Nephrology; ADMIT Family Medicine
DX: A41.9 Sepsis, unspecified organism (principal); N17.0 Acute kidney failure with tubular necrosis; I50.43 Acute on chronic combined systolic (congestive) and diastolic (congestive) heart failure; J69.0 Pneumonitis due to inhalation of food and vomit; N18.3 Chronic kidney disease, stage 3 (moderate); J44.9 Chronic obstructive pulmonary disease, unspecified; I87.2 Venous insufficiency (chronic) (peripheral); I48.91 Unspecified atrial fibrillation; F17.210 Nicotine dependence, cigarettes, uncomplicated; Z59.0 Homelessness; Z90.5 Acquired absence of kidney; Z68.29 Body mass index [BMI] 29.0-29.9, adult; Z85.51 Personal history of malignant neoplasm of bladder; Z85.528 Personal history of other malignant neoplasm of kidney
CPT/HCPCS: 36600; 83880; 84439; 87804; 90658; 90732; 92610-GN; 94150; G0378; J0282; J0456; J0696; J1644; J1885; J1940; J2543; J2920; J3370; J3490; J7030; J7040; J7050; J7060; J7512; J7620; Q0092